=== PATIENT | female | born 1955 | race Hispanic/Latino ===

== ENCOUNTER 2024-08-15 14:51 | Emergency (ER) | payer OTHER ==
[~2024-08-15] VITALS: Ht 165.1 cm; Wt 77.1 kg
--- NOTE | 2024-08-15 15:17 | EKG ---
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
[2024-08-15] MEDS: ondanSETRON 4MG INJ IVP ONE (15:39)
[2024-08-15] MEDS: FAMOTIDINE 20MG VIAL IV ONE (15:39)
[2024-08-15 15:47] LABS: BASOPHILS # (AUTO) 0.02 K/uL (0.00-0.20); BASOPHILS % (AUTO) 0.3 % (0.0-5.0); EOSINOPHILS # (AUTO) 0.03 K/uL (0.00-0.70); EOSINOPHILS % (AUTO) 0.4 % (0.0-8.0); IMMATURE GRANULOCYTE ABSOLUTE 0.03 K/uL (0-1); LYMPHOCYTES # (AUTO) 0.5 K/uL (1.0-4.8); LYMPHOCYTES % (AUTO) 6.5 % (21.0-51.0); MEAN CORPUSCULAR HEMOGLOBIN 32.8 pg (27.0-33.0); MEAN CORPUSCULAR HGB CONC 33.4 g/dL (32.0-36.0); MONOCYTES # (AUTO) 0.7 K/uL (0.1-1.0); MONOCYTES % (AUTO) 9.4 % (3.0-13.0); NEUTROPHILS # (AUTO) 6.1 K/uL (1.8-7.7); PLATELET COUNT (AUTO) 117 K/uL (130-400); RED BLOOD CELL COUNT(AUTO) 3.57 MIL/uL (4.00-5.50); RED CELL DISTRIBUTION WIDTH 12.5 % (11.0-15.5); WHITE BLOOD COUNT (AUTO) 7.4 K/uL (4.8-10.8)
[2024-08-15 15:59] LABS: INR 1.06 (0.85-1.15); PROTHROMBIN TIME 11.2 SEC (9.6-11.6)
[2024-08-15 16:00] LABS: PARTIAL THROMBOPLASTIN TIME 29.5 SEC (26.3-35.5)
[2024-08-15 16:05] LABS: CREATININE 1.4 mg/dL (0.5-1.0); POTASSIUM 3.5 mmol/L (3.5-5.1)
[2024-08-15 16:07] LABS: BAND NEUTROPHILS % (MANUAL) 9 % (0-2); EOSINOPHILS % (MANUAL) 1 % (1-6); LYMPHOCYTES % (MANUAL) 17 % (22-44); MAN.DIFF COMMENT-IMPRESSION MANUAL DIFFERENTIAL; MONOCYTES % (MANUAL) 6 % (2-9); PLATELET MORPHOLOGY COMMENT SLIGHTLY DECREASED; SEGMENTED NEUTROPHILS % 67 % (40-70); TOTAL CELLS COUNTED 100; WBC MORPHOLOGY CONSISTENT W/DIFF
[2024-08-15 16:09] LABS: ALBUMIN 2.4 g/dL (3.5-5.0); BILIRUBIN,DIRECT 0.6 mg/dL (0.0-0.3); BILIRUBIN,TOTAL 1.2 mg/dL (0.2-1.0); TOTAL PROTEIN, SERUM 7.1 g/dL (6.0-8.3)
[2024-08-15] MEDS: metoCLOPRAmide 10 MG/2 ML VIAL IVP ONE (16:18)
--- NOTE | 2024-08-15 17:06 | HMCIMG ---
CT ABDOMEN WITHOUT CONTRAST. CT PELVIS WITHOUT CONTRAST. INDICATION: Right abdominal pain; No relevant information related to this study was provided in patient's history by the ordering service. TECHNIQUE: Routine transaxial imaging using 5 mm slice thickness through the abdomen and pelvis without the administration of IV contrast. Thin slice reconstructions are also provided. Coronal and sagittal reformatted images acquired for interpretation. CT was performed with one or more of the following dose reduction techniques: Automated exposure control, adjustment of the mA and/or kV according to patient size, or use of iterative reconstruction technique. COMPARISON: None FINDINGS: ON NONCONTRAST IMAGING: ABDOMEN: Heart size is normal. Linear scarring at the left greater than right lung base and subpleural cystic changes near the right lung base. 2-3 mm micronodule along the lateral margin of the right lower lobe for which no further follow-up will be necessary based on 2017 Fleischner Society recommendations. No abnormal right renal calcifications, hydronephrosis, perinephric inflammation, or proximal hydroureter detected. 1.3 cm obstructing left pelvic stone identified with secondary moderate left hydronephrosis. 0.5 cm aggregate of nonobstructing calculi at the lower pole of the left kidney. Small amount of air within the left renal pelvis and trace air scattered throughout the proximal to mid left ureter. The liver is normal in size and smooth in contour without biliary duct dilation. The spleen is normal in size and attenuation. The gallbladder is absent. The pancreas appears normal without pancreatic duct dilation. The adrenal glands appear normal. No significant abdominal, retrocrural or retroperitoneal adenopathy noted. No evidence for intra-abdominal free air or organized fluid collection. No aortic aneurysmal dilation identified. PELVIS: Miniscule amount of air nondependently within the urinary bladder. No evidence for free air or organized pelvic fluid collection. No significant pelvic adenopathy detected. Visualized small and large bowel loops appear unremarkable. Terminal ileum appears unremarkable. The appendix appears normal. 5.0 cm subserosal/intramural anterior uterine fundal fibroid obscures the endometrium. Mild thoracolumbar spondylosis chronic bilateral L5 spondylolysis contributing to low-grade (6 mm) anterolisthesis of L5 upon S1.. IMPRESSION: No relevant information related to this study was provided in patient's history by the ordering service. 1. 1.3 cm obstructing left pelvic stone and secondary moderate left hydronephrosis. 0.5 cm aggregate of nonobstructing calculi at the lower pole of the left kidney. Small amount of air within the left renal pelvis and trace air scattered throughout the proximal to mid left ureter, including miniscule amount of air nondependently within the urinary bladder may be related to prior instrumentation. 2. 5.0 cm subserosal/intramural anterior uterine fundal fibroid obscures the endometrium.
--- NOTE | 2024-08-15 18:32 | HMCIMG ---
PORTABLE CHEST RADIOGRAPH INDICATION: Shortness of breath COMPARISON: None FINDINGS: Heart size is normal. The pulmonary vascularity and tri appear normal. No abnormal pulmonary parenchymal opacity or consolidation identified. Linear scarring right upper lung. No significant pleural effusion noted. No pneumothorax detected. IMPRESSION: No radiographic evidence for any acute cardiopulmonary process.
[2024-08-15 19:31] LABS: APPEARANCE,URINE TURBID (CLEAR); BILIRUBIN,URINE NEGATIVE (NEGATIVE); COLOR,URINE YELLOW (YELLOW); GLUCOSE, URINE (UA) NEGATIVE (NEGATIVE); KETONES,URINE NEGATIVE (NEGATIVE); LEUKOCYTE ESTERASE ,URINE 500 Leu/uL (NEGATIVE); NITRATE,URINE 2+ (NEGATIVE); OCCULT BLOOD,URINE MODERATE (NEGATIVE); PROTEIN,URINE 70 mg/dL (NEGATIVE)
[2024-08-15 19:37] LABS: BACTERIA,URINE MANY /HPF (None Seen); MUCUS,URINE MANY LPF (None Seen); SQUAMOUS EPITHELIAL CELL,UR RARE /HPF (0-2); WBC CLUMP MANY /HPF (0-1); WBC,URINE TNTC /HPF (0-1)
--- NOTE | 2024-08-15 20:04 | ERN ---
General Chief Complaint: Abdominal Pain Stated Complaint: VOMITTING SINCE SAT/ Time Seen by MD: 17:03 Source: patient History of Present Illness Timing/Duration: 1 week Allergies: Coded Allergies: No Known Drug Allergies (Unverified Allergy, Unknown, 08/15/24) Home Meds Active Scripts Cephalexin Monohydrate (Keflex) 500 Mg Cap, 500 MG PO QID for 7 Days, #28 CAP Prov:MODESTO PRADO MD 08/15/24 Past Medical History Past Medical History: Arrythmia Past Surgical History: Cholecystectomy Constitutional: (-) chills, (-) diaphoresis, (-) fever, (-) malaise, (-) weakness, (-) other documentation EENTM: (-) eye pain, (-) blurred vision, (-) tearing, (-) double vision, (-) ear pain, (-) ear discharge, (-) nose pain, (-) nose congestion, (-) throat pain, (-) Throat swelling, (-) mouth pain, (-) tooth pain, (-) mouth swelling, (-) other documentation Respiratory: (-) cough, (-) orthopnea, (-) short of breath, (-) stridor, (-) wheezing, (-) other documentation Cardiovascular: (-) chest pain, (-) edema, (-) palpitations, (-) syncope, (-) dyspnea on exertion, (-) other documentation Gastrointestinal/Abdominal: (+) nausea, (+) vomiting Physical Exam General Appearance: (+) mild distress Orientation: (+) oriented x 3 Head/Face Trauma: No Eye: bilateral eye normal inspection, bilateral eye PERRL, bilateral eye EOMI Ear, Nose, Throat: (+) hearing grossly normal Neck: (+) normal inspection Respiratory: (+) chest non-tender Heart: (+) regular Vascular: (+) no edema Gastrointestinal: (+) soft, (+) non-tender, (+) bowel sound present Results Laboratory and Microbiology Lab and Micro Result Laboratory Tests Test 08/15/24 15:36 08/15/24 19:14 White Blood Count 7.4 K/uL (4.8-10.8) Red Blood Count 3.57 MIL/uL (4.00-5.50) L Hemoglobin 11.7 g/dL (12.0-16.0) L Hematocrit 35.0 % (36-48) L Mean Corpuscular Volume 98.0 fL (79-99) Mean Corpuscular Hemoglobin 32.8 pg (27.0-33.0) Mean Corpuscular Hemoglobin Concent 33.4 g/dL (32.0-36.0) Red Cell Distribution Width 12.5 % (11.0-15.5) Platelet Count 117 K/uL (130-400) L Mean Platelet Volume 10.8 fL (7.5-10.5) H Immature Granulocyte % (Auto) 0.4 % (0-1) Neutrophils (%) (Auto) 83.0 % (40.0-77.0) H Lymphocytes (%) (Auto) 6.5 % (21.0-51.0) L Monocytes (%) (Auto) 9.4 % (3.0-13.0) Eosinophils (%) (Auto) 0.4 % (0.0-8.0) Basophils (%) (Auto) 0.3 % (0.0-5.0) Neutrophils # (Auto) 6.1 K/uL (1.8-7.7) Lymphocytes # (Auto) 0.5 K/uL (1.0-4.8) L Monocytes # (Auto) 0.7 K/uL (0.1-1.0) Eosinophils # (Auto) 0.03 K/uL (0.00-0.70) Basophils # (Auto) 0.02 K/uL (0.00-0.20) Absolute Immature Granulocyte (auto 0.03 K/uL (0-1) Segmented Neutrophils % 67 % (40-70) Band Neutrophils % 9 % (0-2) H Lymphocytes % (Manual) 17 % (22-44) L Monocytes % (Manual) 6 % (2-9) Eosinophils % (Manual) 1 % (1-6) Nucleated Red Blood Cells 0.0 % (0.0-0.19) Differential Comment MANUAL DIFFERENTIAL White Cell Morphology Comment CONSISTENT W/DIFF Platelet Morphology Comment SLIGHTLY DECREASED Red Blood Cell Morphology ANISO 1+ Prothrombin Time 11.2 SEC (9.6-11.6) Prothromb Time International Ratio 1.06 (0.85-1.15) Activated Partial Thromboplast Time 29.5 SEC (26.3-35.5) Sodium Level 135 mmol/L (136-145) L Potassium Level 3.5 mmol/L (3.5-5.1) Chloride Level 100 mmol/L (101-111) L Carbon Dioxide Level 30 mmol/L (21-32) Blood Urea Nitrogen 21 mg/dL (7-18) H Creatinine 1.4 mg/dL (0.5-1.0) H Glomerular Filtration Rate Calc 40 mL/min (>90) Random Glucose 156 mg/dL (70-105) H Lactic Acid Level 1.5 mmol/L (0.8-2.5) Total Calcium 8.4 mg/dL (8.5-10.1) L Total Bilirubin 1.2 mg/dL (0.2-1.0) H Direct Bilirubin 0.6 mg/dL (0.0-0.3) H Aspartate Amino Transf (AST/SGOT) 16 U/L (10-37) Alanine Aminotransferase (ALT/SGPT) 8 U/L (12-78) L Alkaline Phosphatase 121 U/L (50-136) Troponin I High Sensitivity 5 ng/L (4-50) Total Protein 7.1 g/dL (6.0-8.3) Albumin 2.4 g/dL (3.5-5.0) L Procalcitonin 1.32 ng/mL (0.05-0.5) H Urine Color YELLOW (YELLOW) Urine Appearance TURBID (CLEAR) Urine pH 6.0 (5.0-8.0) Urine Specific [place] 1.021 (1.001-1.031) Urine Protein 70 mg/dL (NEGATIVE) H Urine Glucose (UA) NEGATIVE mg/dL (NEGATIVE) Urine Ketones NEGATIVE mg/dL (NEGATIVE) Urine Occult Blood MODERATE (NEGATIVE) H Urine Nitrate 2+ (NEGATIVE) H Urine Bilirubin NEGATIVE mg/dL (NEGATIVE) Urine Urobilinogen 4.0 mg/dL (0.2-1.0) H Urine Leukocyte Esterase 500 [place]/uL (NEGATIVE) H Urine RBC 11-25 /HPF (0-1) H Urine WBC TNTC /HPF (0-1) H Urine WBC Clumps (Auto) MANY /HPF (0-1) Urine Squamous Epithelial Cells RARE /HPF (0-2) Urine Bacteria MANY /HPF (None Seen) Urine Hyaline Casts 6-10 /LPF (0-1 /LPF) H MDM Patient's symptoms suspiciously sound like a patient with a urinary tract infection or dehydrated. We ordered the usual labs. The patient does have a urinary tract infection. In addition the patient has left hydronephrosis with a renal calculi. I will give the patient a bolus of fluid and a g of Ancef and then discharge her with a prescription. ED Course Orders Procedure Category Date Status Time 12 Lead Ekg Tracing- EKG 08/15/24 Complete Technical 15:07 Cbc With Differential LAB 08/15/24 Complete 15:07 Basic Metabolic Panel LAB 08/15/24 Complete 15:07 Hepatic Function Panel LAB 08/15/24 Complete 15:07 Lactic Acid LAB 08/15/24 Complete 15:07 Procalcitonin LAB 08/15/24 Complete 15:07 Pt And Ptt LAB 08/15/24 Complete 15:07 Troponin I High LAB 08/15/24 Complete Sensitivity 15:07 Urinalysis LAB 08/15/24 Complete W/Microscopic 15:07 Famotidine 20mg Vial PHA 08/15/24 Complete (Pepcid 20mg Vial) 15:30 Ondansetron 4mg Inj PHA 08/15/24 Complete (Zofran 4mg Inj) 15:30 Manual Differential LAB 08/15/24 Complete 15:36 Metoclopramide 10 PHA 08/15/24 Complete Mg/2 Ml Vial (Reglan 1 16:30 Chest 1vw RAD 08/15/24 Resulted 16:14 Ct Abdomen/Pelvis W/O CT 08/15/24 Resulted Contrast 16:14 Orthostatic Vital CPOE 08/15/24 Transmitted Signs 18:21 Culture Urine POLINA 08/15/24 In Process 19:35 Lactated Ringers PHA 08/15/24 Complete 1000ml (Lactated 20:09 Cefazolin Sodium 1 Gm PHA 08/15/24 Complete Vial (Ancef 1 Gm V 20:09 Current Medications Medications (Trade) Dose Ordered Sig/[place] Route PRN Reason Start Time Stop Time Status Last Admin Dose Admin Cefazolin Sodium (ANCEF 1 gm vial) 1 gm ONCE STAT IVP 08/15/24 20:09 08/15/24 20:12 DC 08/15/24 20:27 Famotidine (Pepcid 20mg Vial) 20 mg ONCE ONCE IV 08/15/24 15:30 08/15/24 15:31 DC 08/15/24 15:39 Lactated Ringer's (Lactated Ringers 1000ml) 1,000 ml BOLUS STAT IV 08/15/24 20:09 08/15/24 20:12 DC 08/15/24 20:27 Metoclopramide HCl (regLAN 10MG IV) 10 mg ONCE ONCE IVP 08/15/24 16:30 08/15/24 16:31 DC 08/15/24 16:18 Ondansetron HCl (zoFRAN 4MG INJ) 4 mg ONCE ONCE IVP 08/15/24 15:30 08/15/24 15:31 DC 08/15/24 15:39 Vital Signs Date Time Temp Pulse Resp B/P (MAP) Pulse Ox O2 Delivery O2 Flow Rate FiO2 08/15/24 18:27 100.2 84 16 118/49 97 Room Air* 0 21 08/15/24 18:24 100.2 87 16 108/54 96 Room Air* 0 21 08/15/24 18:22 100.2 85 16 117/45 97 Room Air* 0 21 08/15/24 17:13 100.9 73 18 105/45 98 Room Air* 0 21 08/15/24 15:10 98.2 87 16 134/51 100 Room Air 0 08/15/24 15:08 98.2 87 16 134/51 98 Room Air* 0 21 DX & DISP Disposition: Discharge Departure Impression: Primary Impression: UTI (urinary tract infection) Additional Impression: Dehydration Condition: Stable Scripts Cephalexin Monohydrate (Keflex) 500 Mg Cap 500 MG PO QID for 7 Days, #28 CAP Prov: MODESTO PRADO MD 08/15/24 Additional Instructions: You do have a urinary tract infection you also have an obstructing stone in your left kidney that is causing urine to backup in the left kidney. If you continue to have nausea vomiting fevers dizziness lightheadedness please come back to the hospital for stronger antibiotics. Referrals: LLOYD BURNETT MD (PCP) MODESTO PRADO MD August 15, 2024 20:04
[2024-08-15] MEDS ORDERED: CEPH500B PO (20:08)
[2024-08-15] MEDS: ceFAZolin SODIUM 1 GM VIAL IVP STA (20:27)
[2024-08-15] MEDS: LACTATED RINGERS 1000ML IV STA (20:27)
[2024-08-15 21:08] VITALS: BP 118/50; PULSE 80; RESP 17; TEMP 98.1; O2SAT 98
== END 2024-08-15 21:09 | disposition home or self-care (01) ==
LOC: EDH 14:51
DX: N39.0 Urinary tract infection, site not specified (principal); E86.0 Dehydration; Z90.49 Acquired absence of other specified parts of digestive tract
CPT/HCPCS: 99285; 74176; 96374; 96375; 71045; 80076; 84484; 80048; 85025; 85610; 85730; 87086 ×2; 87186; 83605; 81001; 36415; 93005; 84145; J7120; J3490; J0690; J2405; J2765

== ENCOUNTER → 2024-08-27 | Outpatient (CLI) | payer OTHER ==
[~2024-08-27] MED LIST: CEPH500B PO
--- NOTE | 2024-08-27 12:33 | HMCIMG ---
Exam Type: US RENAL SONOGRAM Clinical Information: RENAL STONES Comparison: None Findings: both kidneys are normal in size and echogenicity and without worrisome masses. There is a calculus of the left renal lower pole measuring 6 mm. In addition, there is a calculus of the proximal ureter on the left side measuring 16 x 4 mm. The left kidney shows moderate hydronephrosis. There is no hydronephrosis on the right side. Impression: Left proximal ureteral obstructing calculus. Incidentally, a mass arising from the uterus is seen within the pelvis. Consider pelvic sonography.
--- NOTE | 2024-08-28 09:15 | HMCIMG ---
Exam Type: MAMMO DX BILATERAL, US BREAST BILATERAL Clinical Information: UNSPECIFIED LUMP Comparison: None TECHNIQUE: Mammogram was performed with CC and MLO and ML projections. CAD was performed. CAD shows no worrisome regions. FINDINGS: The breasts are heterogeneously dense, which may obscure small masses.. There is apparent nipple inversion on the right side and the right retroareolar region demonstrates an mass which is well identified on ultrasound as well. On ultrasound, this mass is ill-defined, heterogeneous and complex in appearance and measures 5.6 x 4.8 cm. Ultrasound shows prominent lymph node of the right axilla, 3.1 x 3.4 x 1.4 cm. Left side ultrasound demonstrates no worrisome lesions or worrisome lymph nodes of the axilla. IMPRESSION: Worrisome mass of the right breast retroareolar region with possible ipsilateral axillary lymph node involvement. Ultrasound-guided biopsy of the mass is recommended. BI-RADS: CATEGORY 4: SUSPICIOUS ABNORMALITY - BIOPSY SHOULD BE CONSIDERED Note: A negative x-ray should not delay biopsy if a dominant or clinically suspicious mass is present, since 8-10% of cancers are not identified by mammography. Dense breasts particularly, may obscure an underlying neoplasm.
== END | disposition home or self-care (01) ==
LOC: RAH 09:49 → EDUNIT# 10:00
PROVIDERS: ATTEND Internal Medicine
DX: N63.21 Unspecified lump in the left breast, upper outer quadrant (principal); R92.333 Mammographic heterogeneous density, bilateral breasts; N20.0 Calculus of kidney; N63.41 Unspecified lump in right breast, subareolar
CPT/HCPCS: 76770; 77066